=== PATIENT | female | born 1990 | race Caucasian/White ===

== ENCOUNTER → 2021-07-31 12:16 | Outpatient (CLI) | payer MEDICAID, SELFPAY | PROVIDERS: PCP Family Medicine; Referring Provider Family Medicine; Visit Provider Family Medicine | DX: R69 Illness, unspecified (principal) ==

== ENCOUNTER → 2021-08-02 11:19 | Outpatient (CLI) | payer BC, MEDICAID, SELFPAY ==
[2021-08-02 12:14] LABS: hCG Titer Quant., Serum 42 mIU/mL (1-3)
== END ==
PROVIDERS: PCP Family Medicine; Visit Provider Obstetrics & Gynecology
DX: O20.0 Threatened abortion (principal)
CPT/HCPCS: 36415; 84702

== ENCOUNTER → 2021-08-04 08:40 | Outpatient (CLI) | payer BC, MEDICAID, SELFPAY ==
[2021-08-04 09:22] LABS: hCG Titer Quant., Serum 92 mIU/mL (1-3)
== END ==
PROVIDERS: PCP Family Medicine; Referring Provider Obstetrics & Gynecology; Visit Provider Obstetrics & Gynecology
DX: O20.0 Threatened abortion (principal)
CPT/HCPCS: 36415; 84702

== ENCOUNTER → 2021-08-13 10:17 | Outpatient (CLI) | payer BC, MEDICAID, SELFPAY ==
[2021-08-13 11:32] LABS: hCG Titer Quant., Serum 4476 mIU/mL (1-3)
== END ==
PROVIDERS: PCP Family Medicine; Visit Provider Obstetrics & Gynecology
DX: N91.2 Amenorrhea, unspecified (principal)
CPT/HCPCS: 36415; 84702

== ENCOUNTER → 2021-08-30 13:34 | Outpatient (CLI) | payer BC, MEDICAID, SELFPAY ==
[2021-08-30 14:38] LABS: Absolute Lymphocyte Count 1.84 X10^3/uL (0.83-4.51); Absolute Neutrophil Count 7.1 X10^3/uL (2.0-7.7); Basophil# 0.07 X10^3/uL; Basophil% 0.7 % (0-1); Color, Urine Yellow (Yellow); Eosinophil# 0.05 X10^3/uL; Eosinophils% 0.5 % (0-5); Glucose, Dipstick Normal (Normal); Hematocrit 39.7 % (37-47); Hemoglobin 13.9 g/dL (12.0-15.0); Ketone-Dipstick Negative (Negative); Leukocyte Esterase-Dipstick Negative /ul (Negative); Lymphocyte # 1.84 X10^3/ul (0.83-4.51); Lymphocyte % 18.5 % (19-41); Mean Corpuscular Hgb 31.2 pg (27.0-32.0); Mean Corpuscular Volume 89.2 fL (81-99); Mean Platelet Vol. 9.9 fl (6.2-12.0); NRBC Flagged by Analyzer 0 % (0-5); Neutrophil # 7.08 X10^3/uL (2.7-7.7); Nitrite-Dipstick Negative (Negative); Occult Blood-Urine Negative /ul (Negative); Platelet Count 293 K/mm3 (150-450); Protein-Dipstick Negative (Negative); RBC Distribution Width CV 11.7 % (11.6-14.6); RBC Distribution Width SD 37.5 fl (35.1-43.9); Red Blood Count 4.45 M/mm3 (4.2-5.4); Urine Bilirubin Dipstick Negative (Negative); Urine Clarity Clear (Clear); Urine Urobilinogen Normal (Normal); Urine pH 6.5 (5.0 - 8.0)
[2021-08-30 14:58] LABS: Thyroid Stim Hormone (TSH) 0.78 uIU/mL (0.358-3.74)
[2021-08-30 15:33] LABS: HIV - WCH Non-Reactive (Nonreactive); Hepatitis B Surface Antigen Non-Reactive (Nonreactive); Hepatitis C Antibody Non-Reactive (Nonreactive); Rubella IgG Reactive (Nonreactive); Syphilis Antibodies Non-reactive
[2021-09-03 21:06] LABS: Chlamydia By Nucleic Acid AMP Negative (Negative)
[2021-09-03 23:09] LABS: Gonococcus By Nucleic Acid AMP Negative (Negative)
[2021-09-05 16:35] LABS: HPV Reflexed? NOT INDICATED
== END ==
PROVIDERS: PCP Family Medicine; Visit Provider Obstetrics & Gynecology
DX: Z34.81 Encounter for supervision of other normal pregnancy, first trimester (principal); Z11.3 Encounter for screening for infections with a predominantly sexual mode of transmission; Z12.4 Encounter for screening for malignant neoplasm of cervix
CPT/HCPCS: 36415; 81002; 84443; 85025; 86703; 86762; 86780; 86803; 87086; 87088; 87340; 87491; 87591; 88175; G0145

== ENCOUNTER → 2022-01-23 | Outpatient (CLI) | payer MEDICAID, SELFPAY ==
[2022-01-23 15:51] LABS: Hematocrit 33.6 % (37-47); Hemoglobin 11.1 g/dL (12.0-15.0); Mean Corpuscular Volume 90.8 fL (81-99); Mean Platelet Vol. 10.4 fl (6.2-12.0); Platelet Count 295 K/mm3 (150-450); RBC Distribution Width CV 11.9 % (11.6-14.6); RBC Distribution Width SD 39.6 fl (35.1-43.9); White Blood Count 9.4 K/mm3 (4.4-11.0)
[2022-01-23 16:10] LABS: Glucose Challenge Gest 1H 50g 143 mg/dL (70-140)
== END | disposition home or self-care (01) ==
LOC: WOBLAB 14:14
PROVIDERS: PCP Family Medicine; Visit Provider Obstetrics & Gynecology
DX: Z34.83 Encounter for supervision of other normal pregnancy, third trimester (principal)
CPT/HCPCS: 36415; 82950; 85027

== ENCOUNTER → 2022-01-28 | Outpatient (CLI) | payer MEDICAID, SELFPAY ==
[2022-01-28 09:44] LABS: Glucose GTT-Gestation. Fasting 83 mg/dL (<105)
[2022-01-28 11:22] LABS: Glucose GTT-Gestational 1 Hr 114 mg/dL (<190)
[2022-01-28 11:28] LABS: Glucose GTT-Gestational 2 Hr 116 mg/dL (<165)
[2022-01-28 12:37] LABS: Glucose GTT-Gestational 3 Hr 66 L (<145)
== END | disposition home or self-care (01) ==
LOC: WOBLAB 08:42
PROVIDERS: PCP Family Medicine; Visit Provider Obstetrics & Gynecology
DX: O99.810 Abnormal glucose complicating pregnancy (principal)
CPT/HCPCS: 36415; 82951; 82952

== ENCOUNTER → 2022-02-26 | Outpatient (CLI) | payer MEDICAID, SELFPAY ==
[2022-02-26 12:09] LABS: AST(SGOT) 49 U/L (15-37); Alanine Aminotransfer ALT/SGPT 55 U/L (13-56); Albumin, Serum 2.7 g/dL (3.2-5.0); Alkaline Phosphatase 222 U/L (45-117); Bilirubin, Direct 0.18 mg/dL (0.00-0.30); Globulin 4.2 g/dL (2.2-4.2); Protein, Total 6.9 g/dL (6.4-8.2)
== END | disposition home or self-care (01) ==
PROVIDERS: PCP Family Medicine; Referring Provider Obstetrics & Gynecology; Visit Provider Obstetrics & Gynecology
DX: Z34.83 Encounter for supervision of other normal pregnancy, third trimester (principal); L29.8 Other pruritus
CPT/HCPCS: 36415; 80076

== ENCOUNTER 2022-02-28 07:50 | Outpatient (CLI) | payer MEDICAID, SELFPAY ==
[2022-02-28 08:15] VITALS: BP 106/62; PULSE 86; TEMP 36.4
--- NOTE | 2022-02-28 18:16 | OB.TRI.NOTE ---
HPI - General HPI Narrative SUMAYA DE LA CRUZ, is a 31 F who presents for NST PFSH PFSH Social History Smoking Status: Current some day smoker NST FHR Rate Baby A Baseline: 130 Variability:: Moderate Accelerations:: 15 x 15 Decelerations:: None NST Reactive:: Yes Uterine Activity:: quiet Assessment & Plan (1) : PLAN: Plan NST reactive, follow up at scheduled appointments
== END 2022-02-28 08:50 | disposition home or self-care (01) ==
LOC: WPOUT 07:57 → WP 07:57
PROVIDERS: PCP Family Medicine; Visit Provider Obstetrics & Gynecology
DX: O99.330 Smoking (tobacco) complicating pregnancy, unspecified trimester (principal); Z3A.00 Weeks of gestation of pregnancy not specified
CPT/HCPCS: 59025; 59050; 99218; G0378

== ENCOUNTER → 2022-03-19 | Outpatient (CLI) | payer MEDICAID, SELFPAY | END | disposition home or self-care (01) | PROVIDERS: PCP Family Medicine; Visit Provider Obstetrics & Gynecology | DX: Z36.85 Encounter for antenatal screening for Streptococcus B (principal) | CPT/HCPCS: 87081 ==

== ENCOUNTER 2022-04-04 06:55 | Inpatient (IN) | payer MEDICAID, SELFPAY ==
[2022-04-04] VITALS (59 sets, daily range): BP systolic 87–120; BP diastolic 46–73; PULSE 68–98; TEMP 36.8–37.4; O2SAT 84–100; BMI 32.5
[2022-04-04] MEDS: Lactated Ringers 1,000 ML 50 ML IV (07:45)
[2022-04-04 08:02] LABS: Absolute Lymphocyte Count 1.32 X10^3/uL (0.83-4.51); Absolute Neutrophil Count 6.3 X10^3/uL (2.0-7.7); Basophil# 0.04 X10^3/uL; Basophil% 0.5 % (0-1); Eosinophil# 0.09 X10^3/uL; Hematocrit 32.1 % (37-47); Lymphocyte # 1.32 X10^3/ul (0.83-4.51); Lymphocyte % 15.3 % (19-41); Mean Corp Hgb Conc 31.2 g/dL (32-36); Mean Corpuscular Hgb 25.7 pg (27.0-32.0); Mean Corpuscular Volume 82.5 fL (81-99); Mean Platelet Vol. 10.6 fl (6.2-12.0); Monocyte# 0.78 X10^3/uL; NRBC Flagged by Analyzer 0 % (0-5); Neutrophil # 6.31 X10^3/uL (2.7-7.7); Neutrophil % 73.2 % (47-70); Platelet Count 299 K/mm3 (150-450); RBC Distribution Width CV 13.6 % (11.6-14.6); RBC Distribution Width SD 40.8 fl (35.1-43.9); Red Blood Count 3.89 M/mm3 (4.2-5.4); White Blood Count 8.6 K/mm3 (4.4-11.0)
[2022-04-04] MEDS: Oxytocin 30 units/NS 500 ml 30 UNITS/500 ML IV.SOLN IV (08:31)
--- NOTE | 2022-04-04 11:34 | PCM.HP.BLA ---
History and Physical Date of Admission: 04/04/22 HPI: 31-year-old G2, P1 at 38/5 weeks, ELVIE 04/13/2022 by LMP, admitted for induction of labor for cholestasis and polyhydramnios. Denies regular contractions, leaking of fluid, vaginal bleeding. Reports movement. Denies headache, fevers or chills, chest pain or shortness of breath, nausea or vomiting, diarrhea or constipation. 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 Ursodiol 2. Vitamin Allergies: Sulfa causes hives or rash Review of system: Negative otherwise stated above Physical exam: BP 111/63, pulse 74, temp 98.9 ?F, oxygen saturation 97% on room air General: No acute distress HEENT: Normocephalic/atraumatic, PERRLA Cardiac: Regular rate Lungs: Clear to auscultation bilaterally Abdomen: Soft, nontender, gravid Extremities: Minimal edema Musculoskeletal: 5 out of 5 strength throughout all extremities Neurologic: Cranial nerves II through XII grossly intact, no focal deficits Cervical exam: 1cm per RN labs: A positive GBS neg 7/5 Bile acids 14.6 umol/L on 02/26 Failed 1 hour, 3-hour within normal limits hepatitis B/hepatitis C negative/negative HIV negative Syphilis nonreactive Rubella immune Labs today within normal limits FHR: 120/mod linh/+accel/no decel [place]: irregular Assessment/plan:31-year-old G2, P1 at 38/5 weeks, ELVIE 04/13/2022 by LMP, admitted for induction of labor for cholestasis and polyhydramnios. complicated by: Cholestasis and polyhydramnios (on 04/01 MALCOM 26.4, DBP 9.3) EFW on 03/07: 2704 g 69.5 percentile. ? Admit to labor and delivery for induction of labor with Pitocin. ? Cholestasis: Continue ursodiol
--- NOTE | 2022-04-04 12:48 | PN.OBGYN_ITS ---
Subjective Subjective Patient comfortable with contractions Objective Data Objective Data Vital Signs: Vital Signs Temp Pulse BP Pulse Ox 99.1 F 74 105/61 97 04/04/22 12:02 04/04/22 12:02 04/04/22 12:02 04/04/22 10:44 Weight: 178 lb Body Mass Index (BMI) 32.5 Intake & Output: Intake and Output for Last 24 Hours 04/02/22 04/03/22 04/04/22 23:59 23:59 23:59 Intake Total 19.67 / 19.67 Balance 19.67 / 19.67 Lab / Micro Data Result Diagrams: 04/04/22 07:45 Labs: Laboratory Results - last 24 hr 04/04/22 07:45: WBC 8.6, RBC 3.89 L, Hgb 10.0 L, Hct 32.1 L, MCV 82.5, MCH 25.7 L, MCHC 31.2 L, RDW Std Deviation 40.8, RDW Coeff of Reid 13.6, Plt Count 299, MPV 10.6, Immature Gran % (Auto) 1.000 H, Neut % (Auto) 73.2 H, Lymph % (Auto) 15.3 L, [place] % (Auto) 9.0, Eos % (Auto) 1.0, Baso % (Auto) 0.5, Absolute Neuts (auto) 6.3, Absolute Lymphs (auto) 1.32, Nucleated RBC % 0 04/04/22 07:45: Blood Type A POSITIVE, Antibody Screen NEGATIVE Physical Exam Const alert, oriented x3, no apparent distress, average body habitus, healthy appearing and well nourished HEENT normocephalic Eyes PERRL Neck full ROM Resp normal respiratory effort, no retractions and no use of accessory muscles GI GI Narrative: Soft, nontender, gravid Narrative: Cervical exam: /-3. AROM clear fluid Extremity normal to inspection, full ROM and no clubbing, cyanosis or edema Neuro moves all extremities Psych mental status grossly normal, affect normal, speech normal and activity/motor behavior normal Assessment & Plan (1) : PLAN: Patient seen and examined. AROM clear fluid. Continue to titrate Pitocin
[2022-04-04] MEDS: CLARIFY ORDER NOTE (15:10)
[2022-04-04] MEDS: LACTATED RINGERS 500 ML 999 ML IV ×3 (18:07→20:58)
[2022-04-04] MEDS: fentaNYL-bupivacaine (epidural) 100 ML BAG EPIDURAL ×2 (19:10→23:11)
[2022-04-04] MEDS: Amnioinfusion- 0.9% NS 1,000 ML IV.SOLN. INTRA-UTER (21:01)
[2022-04-04] MEDS: Lactated Ringers 1,000 ML 200 ML IV (21:29)
[2022-04-05] VITALS (39 sets, daily range): BP systolic 87–129; BP diastolic 45–69; PULSE 72–111; RESP 14–17; TEMP 36.5–39.6; O2SAT 95–99
[2022-04-05] MEDS: LACTATED RINGERS 500 ML 999 ML IV (01:10)
[2022-04-05] MEDS: fentaNYL-bupivacaine (epidural) 100 ML BAG EPIDURAL ×2 (03:28→08:29)
[2022-04-05] MEDS: Amnioinfusion- 0.9% NS 1,000 ML IV.SOLN. 1000 ML INTRA-UTER (04:51)
[2022-04-05] MEDS: Lactated Ringers 1,000 ML 200 ML IV (06:34)
--- NOTE | 2022-04-05 07:42 | PCM.PN.OB ---
Subjective Subjective Patient comfortable with epidural Objective Data Objective Data Vital Signs: Vital Signs Temp Pulse BP Pulse Ox 100.0 F H 88 104/56 L 98 04/05/22 07:27 04/05/22 07:24 04/05/22 07:24 04/05/22 04:40 Weight: 178 lb Body Mass Index (BMI) 32.5 Intake & Output: Intake and Output for Last 24 Hours 04/03/22 04/04/22 04/05/22 23:59 23:59 23:59 Intake Total 2494.04 / 2494.04 1969.08 / 1968.08 Output Total 550 / 550 800 / 800 Balance 1944.04 / 1944.04 1169.08 / 1169.08 Lab / Micro Data Result Diagrams: 04/04/22 07:45 Labs: Laboratory Results - last 24 hr 04/04/22 07:45: WBC 8.6, RBC 3.89 L, Hgb 10.0 L, Hct 32.1 L, MCV 82.5, MCH 25.7 L, MCHC 31.2 L, RDW Std Deviation 40.8, RDW Coeff of Reid 13.6, Plt Count 299, MPV 10.6, Immature Gran % (Auto) 1.000 H, Neut % (Auto) 73.2 H, Lymph % (Auto) 15.3 L, [place] % (Auto) 9.0, Eos % (Auto) 1.0, Baso % (Auto) 0.5, Absolute Neuts (auto) 6.3, Absolute Lymphs (auto) 1.32, Nucleated RBC % 0 04/04/22 07:45: Blood Type A POSITIVE, Antibody Screen NEGATIVE Physical Exam Const alert, oriented x3, no apparent distress, average body habitus, healthy appearing and well nourished HEENT normocephalic Eyes PERRL Neck full ROM Resp normal respiratory effort, no retractions and no use of accessory muscles Extremity normal to inspection, full ROM and no clubbing, cyanosis or edema Neuro moves all extremities and no focal motor deficits Psych mental status grossly normal, affect normal, speech normal and activity/motor behavior normal Assessment & Plan (1) : PLAN: Called by nursing. Patient seen and examined. Recurrent late decelerations latest exam 6 cm dilated. We will continue resuscitative measures and recheck cervix in 1 hour. Pending repeat cervical exam will consider delivery options
--- NOTE | 2022-04-05 08:22 | PN.OBGYN_ITS ---
Subjective Subjective Patient with some cramping with contractions Objective Data Objective Data Vital Signs: Vital Signs Temp Pulse BP Pulse Ox 100.2 F H 84 105/64 98 04/05/22 08:03 04/05/22 08:03 04/05/22 08:03 04/05/22 08:03 Weight: 178 lb Body Mass Index (BMI) 32.5 Intake & Output: Intake and Output for Last 24 Hours 04/03/22 04/04/22 04/05/22 23:59 23:59 23:59 Intake Total 2494.04 / 2494.04 1974.38 / 1974.38 Output Total 550 / 550 800 / 800 Balance 1944.04 / 1944.04 1175.38 / 1175.38 Lab / Micro Data Result Diagrams: 04/04/22 07:45 Labs: Laboratory Results - last 24 hr 04/04/22 07:45: Blood Type A POSITIVE, Antibody Screen NEGATIVE Physical Exam Const alert, oriented x3, no apparent distress, average body habitus, healthy appearing and well nourished HEENT normocephalic Eyes PERRL Neck full ROM Resp normal respiratory effort, no retractions and no use of accessory muscles Narrative: Cervical exam: 6-7/80/-1 Extremity normal to inspection, full ROM and no clubbing, cyanosis or edema Neuro moves all extremities, no focal motor deficits and no sensory deficits noted Psych mental status grossly normal, affect normal, speech normal and activity/motor behavior normal Assessment & Plan (1) : PLAN: Patient seen and examined. May consider medications at this time. Head well applied. We will continue position changes and recheck in 1 hour. Discussed possible options and discussed borderline temperatures and possible need for antibiotics. Patient states understanding and wishes to lela vazquez
[2022-04-05] MEDS: Sodium Citrate/Citric Acid 30 ML UDC PO (09:59)
[2022-04-05] MEDS: Acetaminophen 500 MG Tablet PO (09:59)
--- NOTE | 2022-04-05 10:07 | PCM.PN.OB ---
Subjective Subjective Pt comfortable with epidural Objective Data Objective Data Vital Signs: Vital Signs Temp Pulse Resp BP Pulse Ox O2 Del Method 99.7 F H 96 16 129/67 H 98 Room Air 04/05/22 10:02 04/05/22 10:03 04/05/22 10:01 04/05/22 10:03 04/05/22 08:03 04/05/22 10:01 Oxygen Delivery Method Room Air Weight: 178 lb Body Mass Index (BMI) 32.5 Intake & Output: Intake and Output for Last 24 Hours 04/03/22 04/04/22 04/05/22 23:59 23:59 23:59 Intake Total 2494.04 / 2494.04 Output Total 550 / 550 800 / 800 Balance 1944.04 / 194.04 1186. / 1186. Lab / Micro Data Result Diagrams: 04/04/22 07:45 Physical Exam Const alert, oriented x3, no apparent distress, average body habitus, healthy appearing and well nourished Eyes PERRL Resp normal respiratory effort, no retractions and no use of accessory muscles Extremity normal to inspection, full ROM and no clubbing, cyanosis or edema Neuro moves all extremities and no focal motor deficits Psych mental status grossly normal, affect normal, speech normal and activity/motor behavior normal Assessment & Plan (1) : PLAN: Patient seen and examined. heart rate tracing with recurrent lates category 2 tracing with no cervical change since last check. Educated patient on findings. Discussed need for primary section for nonreassuring heart tones and failure to progress. Discussed risk benefits alternatives including but not limited to visceral or vascular injury, prolonged hospitalization, blood loss need for transfusion, reoperation, infection including risk for infection with suspected chorioamnionitis. Patient states understanding wish to proceed. All questions were answered and consent was signed. Patient with maternal fever x2 30 minutes apart along with purulent discharge from cervix and borderline heart tones with tachycardia at times. Suspected chorioamnionitis, for ampicillin/gentamicin/clindamycin. For primary section now
[2022-04-05] MEDS: Clindamycin 900 MG/50 ML BAG 75 MG IV ×2 (10:30→19:04)
--- NOTE | 2022-04-05 10:58 | EX.PCM.OBRPT ---
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 Normal uterus, tubes, and ovaries. Consent: Patient arrived for induction of labor at term, subsequently with failure to progress and nonreassuring heart tones and diagnosed with suspected chorioamnionitis and need of primary low-transverse section Via Pfannenstiel incision. Patient understands the risk of the procedure include but are not limited to visceral or vascular injury, prolonged hospitalization, blood loss and need for transfusion, reoperation. Patient state understanding wish to proceed. All questions were answered and consent was signed. Procedure: Patient referred back to the OR where epidural anesthesia was found to be adequate. Amp/gent/clindamycin were given for infection prophylaxis. Patient was prepared and draped in a supine position with leftward tilt. A Pfannenstiel incision was made at the skin with a scalpel. The incision was carried down to the fascia with a scalpel. The fascia was excised and extended laterally. Inferior aspect of the fascia was grasped with a clamp and the underlying rectus and pyramidalis muscle were dissected off sharply with Malin scissors. In a similar aspect the superior aspect of the fascia was grasped with a clamp and the underlying rectus muscle was dissected off sharply. Rectus muscle was dissected at the midline down to the level of pubic symphysis. Preperitoneal fatty tissue was noted and peritoneum was entered bluntly. Peritoneum was extended superiorly and inferiorly with good visualization of bladder. Bladder blade was inserted and vesicouterine peritoneum was identified. Low transverse hysterotomy was made. Hand was brought into the incision. Gentle fundal pressure was applied once the bladder blade was removed and the head was brought into the incision. Head and shoulders were delivered with ease. Cord was cut and clamped. Baby is handed off to nursing. Placenta was delivered via cord traction and fundal massage. Uterus was exteriorized and wiped out with dry laparotomy sponge in order to remove remaining placental membranes. IV oxytocin was initiated in order to facilitate uterine contractions. Uterus was closed in continuous running fashion. Good hemostasis was noted. Uterus was placed back in the abdominal cavity and the incision was reinspected, Christel was placed over the incision. Good hemostasis was noted. Fascia was closed in a continuous running fashion with PDS suture. Subcutaneous irrigation was performed and good hemostasis was noted. Skin was closed in a subcuticular fashion. All counts were correct x2. Patient tolerated procedure well and was brought to recovery in a stable condition.
[2022-04-05] MEDS: Oxytocin 30 units/NS 500 ml 30 UNITS/500 ML IV.SOLN 167 UNITS IV (11:20)
[2022-04-05] MEDS: Lactated Ringers 1,000 ML 100 ML IV (11:30)
[2022-04-05] MEDS: Ketorolac 30 MG/ML Syringe IV ×3 (12:02→23:33)
[2022-04-05] MEDS: Acetaminophen 500 MG Tablet 1000 MG PO ×2 (16:47→23:33)
[2022-04-06] VITALS (13 sets, daily range): BP systolic 90–104; BP diastolic 46–66; PULSE 73–100; RESP 16; TEMP 36.9–37.4; O2SAT 95–98
[2022-04-06] MEDS: Clindamycin 900 MG/50 ML BAG 75 MG IV ×2 (02:13→10:40)
[2022-04-06 04:47] LABS: Hematocrit 26.2 % (37-47); Hemoglobin 8.2 g/dL (12.0-15.0); Mean Corp Hgb Conc 31.3 g/dL (32-36); Mean Corpuscular Hgb 25.9 pg (27.0-32.0); Mean Corpuscular Volume 82.9 fL (81-99); Mean Platelet Vol. 10.7 fl (6.2-12.0); Platelet Count 251 K/mm3 (150-450); RBC Distribution Width CV 13.7 % (11.6-14.6); RBC Distribution Width SD 41.1 fl (35.1-43.9); Red Blood Count 3.16 M/mm3 (4.2-5.4); White Blood Count 15.6 K/mm3 (4.4-11.0)
[2022-04-06] MEDS: Ketorolac 30 MG/ML Syringe IV (05:42)
[2022-04-06] MEDS: Acetaminophen 500 MG Tablet 1000 MG PO ×3 (05:43→18:54)
[2022-04-06] MEDS: 0.9% Saline Lock 10 ML Syringe IV ×2 (10:40→14:43)
[2022-04-06] MEDS: Senna/Docusate Sodium 1 Tablet PO (10:41)
--- NOTE | 2022-04-06 11:31 | PCM.PN.OB ---
Subjective Subjective No overnight complaints. Denies fever, chills, chest pain, shortness of breath Objective Data Objective Data Vital Signs: Vital Signs Temp Pulse Resp BP Pulse Ox O2 Del Method 99.3 F H 85 16 90/52 L 98 Room Air 04/06/22 09:39 04/06/22 09:39 04/06/22 08:06 04/06/22 09:39 04/06/22 09:38 04/06/22 05:43 Oxygen Delivery Method Room Air Weight: 178 lb Body Mass Index (BMI) 32.5 Intake & Output: Intake and Output for Last 24 Hours 04/04/22 04/05/22 04/06/22 23:59 23:59 23:59 Intake Total 2494.04 / 2494.04 4842.48 / 4842.48 150 / 150 Output Total 550 / 550 1750 / 1750 300 / 300 Balance 1944.04 / 1944.04 3092.48 / 3092.48 -150 / -150 Lab / Micro Data Result Diagrams: 04/06/22 04:35 Labs: Laboratory Results - last 24 hr 04/06/22 04:35: WBC 15.6 H, RBC 3.16 L, Hgb 8.2 L, Hct 26.2 L, MCV 82.9, MCH 25.9 L, MCHC 31.3 L, RDW Std Deviation 41.1, RDW Coeff of Reid 13.7, Plt Count 251, MPV 10.7 Physical Exam Const alert, oriented x3, no apparent distress, average body habitus, healthy appearing and well nourished HEENT normocephalic Eyes PERRL Neck full ROM Resp normal respiratory effort, no retractions and no use of accessory muscles GI GI Narrative: Soft, nontender, bandage clean dry and intact Extremity normal to inspection, full ROM and no clubbing, cyanosis or edema Neuro moves all extremities and no focal motor deficits Psych mental status grossly normal, affect normal, speech normal and activity/motor behavior normal Assessment & Plan (1) Delivery by section: PLAN: Postoperative day 1 status post primary section for nonreassuring heart tones. Suspected chorioamnionitis continue antibiotics for 24 hours postop. Patient remains afebrile and asymptomatic. We will continue to monitor
[2022-04-06] MEDS: Ibuprofen 600 MG Tablet PO ×2 (14:42→20:34)
--- NOTE | 2022-04-06 20:35 | NURSING ---
IV assessment still active on worklist at beginning of shift, but pt's IV dc'ed on previous shift. IV assessment marked inactive on worklist. JIM Urias
[2022-04-07] MEDS: Ibuprofen 600 MG Tablet PO ×2 (02:38→08:41)
[2022-04-07] MEDS: Acetaminophen 500 MG Tablet 1000 MG PO ×2 (02:38→08:39)
[2022-04-07 02:39] VITALS: BP 101/57; PULSE 76; RESP 16; TEMP 36.9; O2SAT 96
[2022-04-07 02:40] VITALS: BP 101/57; PULSE 76
[2022-04-07 08:36] VITALS: BP 94/53; PULSE 77; PULSE 79; RESP 18; TEMP 37.2; O2SAT 97; O2SAT 98
[2022-04-07] MEDS: Senna/Docusate Sodium 1 Tablet PO (08:40)
--- NOTE | 2022-04-07 09:23 | PCM.DC.BLA ---
Discharge Summary Date of Admission: 04/04/22 Date of Discharge: 04/07/22 Summary: Patient arrived on 04/04/2022 for induction of labor with cholestasis of . Patient with nonreassuring heart tones and failure to progress subsequently delivered via primary section on 04/05/2022. Patient diagnosed with suspected chorioamnionitis given amp/gent/clinda for 24 hours. Otherwise routine recovery. Discharge home on 04/07/2022 Meaningful Use Info Meaningful Use Diagnoses (Choose all that apply): None applicable Discharge Plan Admission Admit Date/Time: 04/04/22 06:55 Primary Reason for Your Visit: Induction of labor Attending Provider: Alexys Mackey Primary Care Provider: Hayley Orellana Instructions Additional Instructions / Restrictions: Regular diet, okay to shower. No tub baths for 2 weeks. No intercourse for 4 to 6 weeks. No lifting over 25 pounds for 2 to 3 weeks. Call if fevers, chills, chest pain, shortness of breath. Follow-up 1 week Discharge Orders/Prescriptions Prescriptions: New oxycodone 5 mg Tablet 5 mg PO Q6H PRN PRN (Reason: Pain Score 7-10) 4 Days Qty: 16 0RF Discontinued ursodiol 300 mg capsule 300 cap PO TID Referrals / Follow Up: Hayley Orellana MD [Primary Care Provider] - Disposition Disposition (needs filled in before D/C Order can be placed): Home, Self Care
--- NOTE | 2022-04-07 09:24 | PN.OBGYN_ITS ---
Subjective Subjective No overnight complaints. Denies fevers, chills, chest pain, shortness of breath Objective Data Objective Data Vital Signs: Vital Signs Temp Pulse Resp BP Pulse Ox O2 Del Method 98.9 F 79 18 94/53 L 98 Room Air 04/07/22 08:36 04/07/22 08:36 04/07/22 08:36 04/07/22 08:36 04/07/22 08:36 04/07/22 08:36 Oxygen Delivery Method Room Air Weight: 178 lb Body Mass Index (BMI) 32.5 Intake & Output: Intake and Output for Last 24 Hours 04/05/22 04/06/22 04/07/22 23:59 23:59 23:59 Intake Total 4842.48 / 4842.48 456.25 / 456.25 Output Total 1750 / 1750 500 / 500 Balance 3092.48 / 3092.48 -43.75 / -43.75 Lab / Micro Data Result Diagrams: 04/06/22 04:35 Physical Exam Const alert, oriented x3, no apparent distress, average body habitus, healthy appe aring and well nourished HEENT normocephalic Eyes PERRL Neck full ROM Resp normal respiratory effort, no retractions and no use of accessory muscles Skin no rashes or lesions noted Neuro moves all extremities and no focal motor deficits Psych mental status grossly normal, affect normal, speech normal and activity/motor behavior normal Assessment & Plan (1) Delivery by section: PLAN: Postop day 2 status post primary section for nonreassuring heart tones and failure to progress. Pain well controlled. Afebrile status post 24 hours of antibiotics with suspected chorioamnionitis. Okay to discharge home today
== END 2022-04-07 09:59 | disposition home or self-care (01) | DRG 540 ==
PROVIDERS: Obstetrics & Gynecology; Admitting Provider Obstetrics & Gynecology; PCP Family Medicine; Visit Provider Obstetrics & Gynecology
DX: O26.62 Liver and biliary tract disorders in childbirth (principal); K83.1 Obstruction of bile duct; O41.1230 Chorioamnionitis, third trimester, not applicable or unspecified; O40.3XX0 Polyhydramnios, third trimester, not applicable or unspecified; Z3A.38 38 weeks gestation of pregnancy; Z37.0 Single live birth; O76 Abnormality in fetal heart rate and rhythm complicating labor and delivery; Z87.891 Personal history of nicotine dependence
CPT/HCPCS: 59025; 59050; 85025; 85027; 86850; 86900; 86901; 99218; J7030; J7120; A4216; G0378; J2405

== ENCOUNTER → 2022-04-11 | Outpatient (CLI) | payer MEDICAID, SELFPAY ==
[2022-04-11 16:36] LABS: Hematocrit 28.5 % (37-47); Hemoglobin 8.8 g/dL (12.0-15.0); Mean Corp Hgb Conc 30.9 g/dL (32-36); Mean Corpuscular Hgb 25.4 pg (27.0-32.0); Mean Corpuscular Volume 82.4 fL (81-99); Mean Platelet Vol. 10.3 fl (6.2-12.0); Platelet Count 457 K/mm3 (150-450); RBC Distribution Width CV 14.8 % (11.6-14.6); RBC Distribution Width SD 43.8 fl (35.1-43.9); Red Blood Count 3.46 M/mm3 (4.2-5.4); White Blood Count 11.7 K/mm3 (4.4-11.0)
[2022-04-11 17:06] LABS: ALB/GLOB Ratio 0.5 RATIO (0.9-2.4); AST(SGOT) 21 U/L (15-37); Alanine Aminotransfer ALT/SGPT 30 U/L (13-56); Albumin, Serum 2.5 g/dL (3.2-5.0); Alkaline Phosphatase 258 U/L (45-117); Anion Gap 7 (5-15); BUN 9 mg/dL (7-18); BUN/Creat Ratio 16.2 RATIO (10-20); Calcium,Total 8.7 mg/dL (8.5-10.1); Chloride 105 mmol/L (98-107); Creatinine, Serum 0.56 mg/dL (0.55-1.02); EST Glomerular Filtration Rate 134 mL/min (>60); Est Glom Filt Rate - Afr Amer 162 mL/min (>60); Globulin 4.6 g/dL (2.2-4.2); Glucose 82 mg/dL (74-106); Potassium 3.8 mmol/L (3.5-5.1); Protein, Total 7.1 g/dL (6.4-8.2); Sodium Level 139 mmol/L (136-145)
== END | disposition home or self-care (01) ==
PROVIDERS: PCP Family Medicine; Visit Provider Obstetrics & Gynecology
DX: K81.9 Cholecystitis, unspecified (principal)
CPT/HCPCS: 36415; 80053; 85027

== ENCOUNTER 2022-11-05 01:59 | Emergency (ER) | payer MEDICAID, SELFPAY ==
[2022-11-05 02:00] VITALS: BP 130/71; PULSE 77; RESP 16; TEMP 36.8; O2SAT 98; BMI 25.1
--- NOTE | 2022-11-05 02:07 | CT_ITS ---
EXAM: CT ABDOMEN AND PELVIS WITH INTRAVENOUS CONTRAST CLINICAL INDICATION: Abdominal pain TECHNIQUE: Helically acquired images were obtained of the abdomen and pelvis with intravenous contrast. This CT exam was performed using one or more of the following dose reduction techniques: automated exposure control, adjustment of the mA and/or kV according to patient size, and/or use of iterative reconstruction technique. This report was created using [employer] report generation technology. CONTRAST: IV 100mL Isovue-[id number] COMPARISON: None. FINDINGS: LOWER THORAX: Unremarkable. Lung bases are clear. No cardiomegaly. No significant pericardial effusion. ABDOMEN: LIVER: Unremarkable. Homogeneous. No focal mass. GALLBLADDER AND BILE DUCTS: Unremarkable. No calcified gallstones. No gallbladder distention or wall edema. No intra- or extrahepatic biliary ductal dilation. PANCREAS: Unremarkable. No focal cystic or solid mass. SPLEEN: Unremarkable. Normal size without focal cystic or solid mass. ADRENALS: Unremarkable. No nodules. KIDNEYS AND URETERS: Unremarkable. Normal renal size and position. No hydronephrosis. STOMACH AND BOWEL: Unremarkable. No stomach or bowel distention. No focal inflammatory change. PELVIS: APPENDIX: The appendix is normal. BLADDER: Unremarkable. REPRODUCTIVE: There is a 1.6 cm right ovarian cyst. ABDOMEN and PELVIS: INTRAPERITONEAL SPACE: Unremarkable. No ascites or other fluid collection. No free air. BONES/JOINTS: Unremarkable. No suspicious lytic or blastic abnormality. SOFT TISSUES: Unremarkable. No discrete abdominal or pelvic wall hernia. VASCULATURE: Unremarkable. Abdominal aorta is non-dilated. LYMPH NODES: Unremarkable. No enlarged lymph nodes. CT/Abdomen/Pelvis W IV Cont ONLY IMPRESSION: There is a 1.6 cm right ovarian cyst. Otherwise unremarkable exam. Electronically Signed: Esteban Perez MD at 3:18 EST ,
--- NOTE | 2022-11-05 02:20 | ED.VIS.GI ---
HPI HPI - GI History of Present Illness Chief Complaint: Abd Pain Narrative Narrative: 32-year-old female presenting with lower abdominal cramping that started last evening. She states he been having trouble sleeping due to the discomfort. She states that she had a couple of bowel movements initially with blood mixed in but now she had a couple of bowel movements are just bloody. She not had a fever. No exotic travel. No exotic food. No trauma. She states she has no medical problems. No history of inflammatory bowel disease. She is on any blood thinners. She states that when she was having bowel movements earlier she felt a little lightheaded and sweaty. This is ultimately resolved. [facility] Medical History Cholestasis during Polyhydramnios Home Medications NK 11/05/22 [History Last Taken Unknown] Allergy/AdvReac Type Severity Reaction Status Date / Time Sulfa (Sulfonamide Allergy Hives Verified 11/05/22 02:02 Antibiotics) Social History Smoking Status: Light Smoker (<10/day) [facility] ED Constitutional Constitutional ED: Denies chills, fever(s) or sweats Eyes Eyes: Denies blurry vision or change in vision ENT ENT ED: Denies ear pain or sore throat Cardiovascular Cardiovascular: Denies chest pain, palpitations or racing heartbeat Respiratory/Chest Respiratory/Chest: Denies cough, dyspnea or sputum Gastrointestinal Gastrointestinal: Reports abdominal pain, diarrhea, nausea and other Details: Hematochezia ; Denies constipation or vomiting Genitourinary Genitourinary ED: Denies dysuria, hematuria or urinary frequency Musculoskeletal Musculoskeletal: Denies arthralgias, myalgias or neck pain Integumentary Denies abscess, Abrasions or rash Neurologic Neurologic: Denies headache(s), paresthesias or weakness Psychiatric Psychiatric: Denies anxiety, depression, suicidal ideation or suicidal thoughts Endocrine Endocrinology: Denies polydipsia or polyuria EXAM Physical Exam Const Vital Signs: 11/05/22 02:00 11/05/22 02:28 Temperature 98.2 F Temperature Source Oral Pulse Rate 77 Pulse Rate [Lying] 76 Pulse Rate [Sitting (for 1 minute prior to obtaining)] 73 Pulse Rate [Standing (for 1 minute prior to obtaining)] 79 Respiratory Rate 16 Blood Pressure 130/71 H Blood Pressure [Lying] 108/64 Blood Pressure [Sitting (for 1 minute prior to obtaining)] 112/68 Blood Pressure [Standing (for 1 minute prior to obtaining)] 112/79 Blood Pressure Mean 90 Blood Pressure Mean [Lying] 78 Blood Pressure Mean [Sitting (for 1 minute prior to obtaining)] 82 Blood Pressure Mean [Standing (for 1 minute prior to obtaining)] 90 Pulse Ox 98 Oxygen Delivery Method Room Air Positive well nourished General Appearance ED: NAD; Negative for pallor HEENT Reports moist mucous membranes normocephalic and atraumatic Eyes PERRL and EOMs intact bilaterally General Eye ED: Negative for pale conjunctiva Resp normal respiratory effort and clear to auscultation bilaterally Auscultation: Negative for rales, rhonchi or wheezes Cardio regular rate and regular rhythm GI GI Narrative: Benign abdominal exam. Palpation: Negative for guarding or rigid Back/Spine no CVA tenderness Neuro CN's II-XII intact bilaterally Sensorium / Orientation: alert Motor Exam: strength 5/5 throughout Psych mental status grossly normal and thought process normal Skin no wounds General Skin Exam: Negative for jaundice or pallor MDM MDM MDM Narrative Medical decision making narrative: Patient presenting with mild lower abdominal pressure. She is also had some bloody bowel movements tonight. No fevers or chills. No nausea or vomiting. She did feel little bit lightheaded and dizzy earlier when she was having bowel movements. He is not on any blood thinners. Denies any trauma. She is well-appearing. Abdominal exam significant for some mild lower parvez tenderness. No rebound or guarding. Differential diagnosis includes but is not limited to colitis, diverticulitis, internal hemorrhoid. She does not have any external hemorrhoids on exam. CBC obtained to assess white blood cell count, hemoglobin, differential. CMP to assess liver function, renal function, electrolytes. Urinalysis to assess for UTI. hCG to rule out . Patient declines analgesia and antiemetics. CBC shows a normal white blood cell count at 9.8. Hemoglobin stable at 13.0. Platelets are normal at 359. Renal function electrolytes all normal. LFTs are normal. Urinalysis negative for infection. hCG negative. CT of the abdomen pelvis with IV contrast was obtained and is negative for acute findings other than a right-sided 1.6 cm ovarian cyst. Counseled on findings. Feel she is safe for discharge. I will give her follow-up with GI given she had some blood in her stool. Return precautions discussed at length. Impression: 1. Hematochezia 2. Abdominal pain 3. right-sided ovarian cyst Lab Data Attestation: I reviewed the patient's lab results. Labs: Laboratory Results - last 24 hr 11/05/22 11/05/22 11/05/22 02:15 02:15 02:20 WBC 9.8 RBC 4.96 Hgb 13.0 Hct 40.2 MCV 81.0 MCH 26.2 L MCHC 32.3 RDW Std Deviation 39.9 RDW Coeff of Reid 13.5 Plt Count 359 MPV 10.1 Immature Gran % (Auto) 0.300 Neut % (Auto) 73.9 H Lymph % (Auto) 17.4 L [place] % (Auto) 7.1 Eos % (Auto) 0.1 Baso % (Auto) 1.2 H Absolute Neuts (auto) 7.3 Absolute Lymphs (auto) 1.71 Nucleated RBC % 0 Sodium 140 Potassium 3.7 Chloride 108 H Carbon Dioxide 23.0 Anion Gap 9 BUN 17 Creatinine 0.66 Estim Creat Clear Calc 95.89 Est GFR (MDRD) Af Amer 132 Est GFR (MDRD) Non-Af 109 BUN/Creatinine Ratio 25.6 H Glucose 130 H Calcium 9.4 Total Bilirubin 0.40 AST 21 ALT 27 Alkaline Phosphatase 100 Total Protein 8.0 Albumin 4.0 Globulin 4.0 Albumin/Globulin Ratio 1.0 Urine Color Yellow Urine Clarity Clear Urine pH 5.0 Ur Specific Ava 1.020 Urine Protein 15 H Urine Glucose (UA) Normal Urine Ketones 50 H Urine Occult Blood 150 H Urine Nitrite Negative Urine Bilirubin Negative Urine Urobilinogen Normal Ur Leukocyte Esterase 25 H Urine RBC 0-5 SEEN Urine WBC 0-5 SEEN Ur Squamous Epith Cells 0-5 SEEN Urine Bacteria 1+ Urine Mucus 1+ Urine Test Negative Radiography Diagnostic Testing: Clinical Impression(s) from Imaging Studies Abdomen/Pelvis CT 11/05/22 02:07 IMPRESSION: There is a 1.6 cm right ovarian cyst. Otherwise unremarkable exam. Electronically Signed: Esteban Perez MD at 3:18 EST , Discharge Plan Triage Chief Complaint: Abd Pain ED Provider: Dakotah Fitzgerald Dx/Rx/DC Orders Clinical Impression: Blood in stool Instructions: ED Lower GI Bleeding (Stable) Prescriptions: No Action NK Primary Care Provider: Hayley Orellana Referrals: Hayley Orellana MD [Primary Care Provider] - Chris Ballesteros DO [Med Staff - Active Staff] - 3-5 Days Disposition Disposition: Home, Self Care
[2022-11-05 02:22] LABS: Absolute Lymphocyte Count 1.71 X10^3/uL (0.83-4.51); Absolute Neutrophil Count 7.3 X10^3/uL (2.0-7.7); Basophil# 0.12 X10^3/uL; Basophil% 1.2 % (0-1); Eosinophil# 0.01 X10^3/uL; Eosinophils% 0.1 % (0-5); Hematocrit 40.2 % (37-47); Lymphocyte # 1.71 X10^3/ul (0.83-4.51); Lymphocyte % 17.4 % (19-41); Mean Corp Hgb Conc 32.3 g/dL (32-36); Mean Corpuscular Hgb 26.2 pg (27.0-32.0); Mean Platelet Vol. 10.1 fl (6.2-12.0); Monocyte% 7.1 % (0-10); NRBC Flagged by Analyzer 0 % (0-5); Neutrophil # 7.25 X10^3/uL (2.7-7.7); Neutrophil % 73.9 % (47-70); Platelet Count 359 K/mm3 (150-450); RBC Distribution Width CV 13.5 % (11.6-14.6); RBC Distribution Width SD 39.9 fl (35.1-43.9); Red Blood Count 4.96 M/mm3 (4.2-5.4); White Blood Count 9.8 K/mm3 (4.4-11.0)
[2022-11-05 02:28] VITALS: BP 108/64; BP 112/68; BP 112/79; PULSE 73; PULSE 76; PULSE 79
[2022-11-05 02:33] LABS: Color, Urine Yellow (Yellow); Glucose, Dipstick Normal (Normal); Ketone-Dipstick 50 mg/dl (Negative); Leukocyte Esterase-Dipstick 25 /ul (Negative); Nitrite-Dipstick Negative (Negative); Occult Blood-Urine 150 /ul (Negative); Protein-Dipstick 15 mg/dl (Negative); Urine Bilirubin Dipstick Negative (Negative); Urine Clarity Clear (Clear); Urine Urobilinogen Normal (Normal)
[2022-11-05 02:36] LABS: Internal QC Validated? YES +Cl - CLEAR BKGD; Pregnancy, Urine Negative Negative
[2022-11-05 02:39] LABS: AST(SGOT) 21 U/L (15-37); Alanine Aminotransfer ALT/SGPT 27 U/L (13-56); Alkaline Phosphatase 100 U/L (45-117); Anion Gap 9 (5-15); BUN 17 mg/dL (7-18); BUN/Creat Ratio 25.6 RATIO (10-20); Calcium,Total 9.4 mg/dL (8.5-10.1); Chloride 108 mmol/L (98-107); Creatinine, Serum 0.66 mg/dL (0.55-1.02); EST Glomerular Filtration Rate 109 mL/min (>60); Est Glom Filt Rate - Afr Amer 132 mL/min (>60); Estimated Creatinine Clearance 95.89 ml/min; Glucose 130 mg/dL (74-106); Potassium 3.7 mmol/L (3.5-5.1); Sodium Level 140 mmol/L (136-145)
[2022-11-05 02:44] LABS: Bacteria 1+ /hpf (None Seen); Mucous, Urine 1+ /hpf (<or=2+); Red Blood Cells-Urine 0-5 SEEN /hpf (0-5); Squamous Epithelial Cells - UA 0-5 SEEN /hpf (5-10); White Blood Cells 0-5 SEEN /hpf (0-5)
[2022-11-05 04:45] VITALS: RESP 18
== END 2022-11-05 04:46 | disposition home or self-care (01) ==
PROVIDERS: Emergency Provider Student in an Organized Health Care Education/Training Program; PCP Family Medicine; Visit Provider Student in an Organized Health Care Education/Training Program
DX: K92.1 Melena (principal); F17.200 Nicotine dependence, unspecified, uncomplicated; N83.201 Unspecified ovarian cyst, right side
CPT/HCPCS: 74177; 80053; 81001; 81025; 85025; 99283; Q9967; A4216

== ENCOUNTER → 2024-11-04 | Outpatient (CLI) | payer MEDICAID, SELFPAY | END | disposition home or self-care (01) | LOC: MFPLAB 14:45 | PROVIDERS: PCP Family Medicine; Visit Provider Family Medicine | DX: R63.5 Abnormal weight gain (principal) | CPT/HCPCS: 36415; 84443 ==